=== PATIENT | male | born 1970 | race Hispanic/Latino ===

== ENCOUNTER 2021-07-22 15:13 | Emergency (ER) | payer OTHER ==
[~2021-07-22] VITALS: Ht 182.9 cm; Wt 114.8 kg
[2021-07-22 16:48] VITALS: BP 146/86
[2021-07-22 17:45] LABS: HEMATOCRIT 45.5 % (42-54); MEAN CORPUSCULAR VOLUME 84.9 fL (79-99); PLATELET COUNT (AUTO) 171 K/uL (130-400); RED BLOOD CELL COUNT(AUTO) 5.36 MIL/uL (4.50-6.20); RED CELL DISTRIBUTION WIDTH 13.4 % (11.0-15.5); WHITE BLOOD COUNT (AUTO) 8.9 K/uL (4.8-10.8)
[2021-07-22 17:56] LABS: CREATININE 0.7 mg/dL (0.5-1.5); POTASSIUM 3.7 mmol/L (3.5-5.1)
[2021-07-22 18:05] LABS: ALBUMIN 3.8 g/dL (3.5-5.0); BILIRUBIN,TOTAL 0.5 mg/dL (0.2-1.0); TOTAL PROTEIN, SERUM 7.6 g/dL (6.0-8.3)
[2021-07-22 19:22] LABS: BAND NEUTROPHILS % (MANUAL) 2 % (0-2); LYMPHOCYTES % (MANUAL) 30 % (22-44); MAN.DIFF COMMENT-IMPRESSION MANUAL DIFFERENTIAL; MONOCYTES % (MANUAL) 6 % (2-9); PLATELET MORPHOLOGY COMMENT ADEQUATE; SEGMENTED NEUTROPHILS % 62 % (40-70)
== END 2021-07-22 18:21 | disposition home or self-care (01) ==
LOC: EDH 15:13
DX: F41.9 Anxiety disorder, unspecified (principal); R07.89 Other chest pain; E11.9 Type 2 diabetes mellitus without complications; E78.00 Pure hypercholesterolemia, unspecified; I10 Essential (primary) hypertension; I25.10 Atherosclerotic heart disease of native coronary artery without angina pectoris; Z95.5 Presence of coronary angioplasty implant and graft
CPT/HCPCS: 36415; 80053; 84484; 85025; 93005

== ENCOUNTER 2022-10-13 06:04 | Day surgery (SDC) | payer BC ==
[2022-10-09 15:19] LABS: BASOPHILS % (AUTO) 0.3 % (0.0-5.0); EOSINOPHILS % (AUTO) 2.9 % (0.0-8.0); HEMATOCRIT 45.4 % (42-54); LYMPHOCYTES % (AUTO) 30.1 % (21.0-51.0); MEAN CORPUSCULAR HEMOGLOBIN 28.5 pg (27.0-33.0); MEAN CORPUSCULAR HGB CONC 33.5 g/dL (32.0-36.0); MEAN CORPUSCULAR VOLUME 85.2 fL (79-99); MONOCYTES % (AUTO) 8.8 % (3.0-13.0); NEUTROPHILS % (AUTO) 57.5 % (40.0-77.0); PLATELET COUNT (AUTO) 209 K/uL (130-400); RED BLOOD CELL COUNT(AUTO) 5.33 MIL/uL (4.50-6.20); RED CELL DISTRIBUTION WIDTH 13.9 % (11.0-15.5); WHITE BLOOD COUNT (AUTO) 9.8 K/uL (4.8-10.8)
[2022-10-09 15:45] VITALS: BP 109/76
[2022-10-09 15:47] LABS: CREATININE 1.2 mg/dL (0.5-1.5); POTASSIUM 4.2 mmol/L (3.5-5.1)
[2022-10-09 15:50] LABS: INR 0.99 (0.85-1.15); PROTHROMBIN TIME 10.8 SEC (9.6-11.6)
[2022-10-09 15:51] LABS: PARTIAL THROMBOPLASTIN TIME 25.5 SEC (26.3-35.5)
[2022-10-09 16:04] LABS: B-TYPE NATRIURETIC PEPTIDE 15 pg/mL (0-100)
[2022-10-13] VITALS (11 sets, daily range): BP systolic 136–154; BP diastolic 67–95
[~2022-10-13] VITALS: Ht 182.9 cm; Wt 117.6 kg
[~2022-10-13 06:04] MED LIST: ASPI-1443 PO; INSLAN SQ; LISI10TA24 PO; METF-446 PO; METO-409 PO; ROSU40TA21 PO; SEMA1PEN3 SQ
[2022-10-13] MEDS ORDERED: 0.9%NACL 1000ML 1,000 ML IV ONE ×2 (06:57→10:12)
[2022-10-13] MEDS ORDERED: MIDAZOLAM HCL 1 MG/ML 2ML VIAL ONE (07:20)
[2022-10-13] MEDS ORDERED: IOHEXOL-350 75 ML VIAL IV ONE ×3 (07:20→08:35)
[2022-10-13] MEDS ORDERED: FENTANYL CITRATE PF 50 MCG/1 ML 2ML VIAL ONE (07:20)
[2022-10-13] MEDS ORDERED: HEPARIN 10,000 UNIT/10ML (1,000 UNIT/ML) VIAL ONE (07:20)
[2022-10-13] MEDS ORDERED: IOHEXOL-350 50ML VIAL IV ONE (07:20)
[2022-10-13] MEDS ORDERED: LIDOCAINE HCL 400MG/20ML VIAL ONE (07:20)
[2022-10-13] MEDS ORDERED: NITROGLYCERIN 50MG VIAL ONE (07:20)
[2022-10-13] MEDS ORDERED: VERAPAMIL HCL 2.5 MG/ML VIAL ONE (07:20)
[2022-10-13] MEDS ORDERED: BIVALIRUDIN 250 MG/VIAL IV ONE ×2 (08:15→08:38)
[2022-10-13] MEDS ORDERED: DEXTROSE 50%-WATER 50 ML DISP.SYRIN IV PRN (09:00)
[2022-10-13] MEDS ORDERED: GLUCAGON 1MG KIT 1 MG ML IM PRN (09:00)
[2022-10-13] MEDS ORDERED: ASPIRIN 325MG EC TAB PO ONE (09:23)
[2022-10-13] MEDS ORDERED: CLOPIDOGREL 300MG TAB ONE (09:23)
[2022-10-13] MEDS ORDERED: 0.9%NACL 1000ML 1,000 ML IV SCH (09:30)
[2022-10-13] MEDS ORDERED: ONDANSETRON 4MG INJ ONE (10:43)
[2022-10-13] MEDS ORDERED: HYDROCODONE/ACETAMINOPHEN 5/325 MG TAB ONE (10:43)
[2022-10-13] MEDS ORDERED: INSULIN HUMULIN R 100 UNIT/ML 3ML SQ SCH (11:30)
== END 2022-10-13 13:09 | disposition home or self-care (01) ==
LOC: DAH 06:04
PROVIDERS: ATTEND Internal Medicine Interventional Cardiology
DX: I25.119 Atherosclerotic heart disease of native coronary artery with unspecified angina pectoris (principal); T82.855A Stenosis of coronary artery stent, initial encounter; E66.01 Morbid (severe) obesity due to excess calories; E11.59 Type 2 diabetes mellitus with other circulatory complications; E11.43 Type 2 diabetes mellitus with diabetic autonomic (poly)neuropathy; E78.2 Mixed hyperlipidemia; M79.609 Pain in unspecified limb; Z95.5 Presence of coronary angioplasty implant and graft; Z79.01 Long term (current) use of anticoagulants; Z79.899 Other long term (current) drug therapy; Z79.82 Long term (current) use of aspirin; Z79.4 Long term (current) use of insulin; Z87.891 Personal history of nicotine dependence; Z68.36 Body mass index [BMI] 36.0-36.9, adult; Y83.8 Other surgical procedures as the cause of abnormal reaction of the patient, or of later complication, without mention of misadventure at the time of the procedure; Y92.89 Other specified places as the place of occurrence of the external cause
CPT/HCPCS: 80048; 83880; 85025; 85610; 85730; 36415; 71045; 93005; 82948 ×2; 93458; C9600; C1887 ×2; C1894 ×3; C1769 ×2; C1760; C1874; C1725; J3010; J3490 ×3; J7030 ×2; J2250; J2405; J1644; J0583; Q9967 ×3; A4215; A4222; A4221; A4663; A4216; A4606; A4223 ×3; 99156; 99157